=== PATIENT | female | born 1990 | race Caucasian/White ===

== ENCOUNTER 2016-08-28 09:09 | Emergency (ER) | payer OTHER ==
--- NOTE | 2016-08-28 09:27 | UCPHY ---
H & P Time Seen by Provider: 08/28/16 09:11 Patient Type: New HPI/ROS: 25-year-old female presents complaining of bilateral ear pain, severe that started at 2:00 a.m.. She had cold symptoms for several days prior to that. No prior history of ear infection Review of systems As per HPI -cold symptoms, ear pain General no fever no chills no weakness HEENT no eye pain no eye discharge. No eye redness, no sore throat Respiratory no cough, no shortness of breath Cardiac no chest pain, no peripheral edema GI no abdominal pain, no diarrhea, no constipation, no nausea, no vomiting no flank pain, no hematuria, no dysuria Musculoskeletal no myalgias, no joint pain Heme no easy bruising, no easy bleeding Endo no polyuria, no polydipsia Skin no rashes, no pruritus Neuro no syncope, no dizziness, no headaches Psych is no suicidal ideation, no homicidal ideation Past Medical/Surgical History: noncontributory Social History: alcohol socially, denies drug use Smoking Status: Never smoked Physical Exam: 25-year-old female Alert and oriented nontoxic appearance, moderate distress secondary to ear pain , afebrile Atraumatic normocephalic Extraocular muscles intact, anicteric TMs bulging erythematous bilaterally no vesicles, no drainage Nares mild yellowish discharge Oropharynx mild erythema no tonsillar swelling no exudate no uvular deviation, tolerating own secretions Neck supple no lymphadenopathy Lungs clear to auscultation bilaterally Heart regular rate and rhythm Abdomen normoactive bowel sounds soft nontender Extremities no cyanosis clubbing or edema Skin no rash Constitutional: Initial Vital Signs Temperature (C) 36.1 C 08/28/16 09:28 Heart Rate 98 08/28/16 09:28 Respiratory Rate 20 08/28/16 09:28 Blood Pressure 130/92 H 08/28/16 09:28 O2 Sat (%) 95 08/28/16 09:28 O2 Delivery Mode Room Air Allergies/Adverse Reactions: No Known Allergies Allergy (Verified 08/28/16 09:28) Home Medications: Medication Instructions Recorded Amoxicillin/Clavulanate Pot 875 mg PO BID #20 tab 08/28/16 [Augmentin 875 MG TAB (*)] oxyCODONE IR [Oxycodone Ir (*)] 5 mg PO Q8 PRN #15 tab 08/28/16 Medical Decision Making ED Course/Re-evaluation: patient seen and evaluated for severe bilateral ear pain following several days of cold symptoms sudden onset in nature exam significant for bulging erythematous bilateral tympanic membranes oropharynx with mild erythema impression otitis media bilateral plan Augmentin oxycodone - Data Points Medications Given: Discontinued Medications Amoxicillin/Clavulanate Potassium (Augmentin 875mg) 875 mg PO EDNOW ONE PRN Reason: Protocol Stop: 08/28/16 09:51 Last Admin: 08/28/16 10:10 Dose: 875 mg Proparacaine HCl (Alcaine 0.5%) 1 drops OP EDNOW ONE Stop: 08/28/16 09:37 Last Admin: 08/28/16 10:06 Dose: 1 drop Departure - Departure Disposition: Home, Routine, Self-Care Clinical Impression: Otitis media Condition: Good Instructions: Otitis Media (ED) Referrals: Orville Nash MD [Primary Care Provider] - As per Instructions Prescriptions: Amoxicillin/Clavulanate Pot [Augmentin 875 MG TAB (*)] 875 mg PO BID #20 tab oxyCODONE IR [Oxycodone Ir (*)] 5 mg PO Q8 PRN #15 tab PRN Reason: Pain, Severe - PQRS PQRS Measurement: Not applicable
[2016-08-28 09:31] VITALS: BP 130/92; PULSE 98; RESP 20; TEMP 96.9; O2SAT 95
[2016-08-28] MEDS ORDERED: PROPARACAINE 0.5% 15 ML OPHT DROP OP ONE (09:36)
[2016-08-28] MEDS ORDERED: AMOXICILLIN/CLAVULANATE POT 875/125 MG TAB PO ONE (09:50)
== END 2016-08-28 10:19 | disposition home or self-care (01) ==
LOC: CED 09:09
DX: H66.93 Otitis media, unspecified, bilateral (principal)
CPT/HCPCS: 99203-PO; G0463-PO